=== PATIENT | male | born 1990 | race Two or more races ===

== ENCOUNTER 2018-03-16 23:08 | Emergency (ER) | payer OTHER ==
--- NOTE | 2018-03-16 23:27 | EDM.PDOC ---
ED HPI GENERAL MEDICAL PROBLEM - General Chief Complaint: Abdominal Pain Stated Complaint: abdominal pain, bloody stools Time Seen by Provider: 03/16/18 23:15 Source of Information: Reports: Patient History Limitations: Reports: No Limitations - History of Present Illness INITIAL COMMENTS - FREE TEXT/NARRATIVE: Patient reports being awakened with abdominal pain that is near the umbilicus. No nausea, no vomiting. Bloody stool. Denies fever, chills, chest pain, SOB, loss of consciousness. States he fell earlier today on the ice with no pain from that. Denies any prior surgeries. Gall bladder and appendix still intact. States he sleeps about 4 hours per day. He denies other medical history. No history of hemorrhoids, ulcers, GERD. Onset: Today, Sudden Duration: Intermittent Location: Reports: Abdomen Severity: Mild Improves with: Reports: None Worsens with: Reports: None Associated Symptoms: Reports: No Other Symptoms Lower Abdomen Pain Score (Numeric/FACES): 6 - Related Data Allergies Allergy/AdvReac Type Severity Reaction Status Date / Time No Known Allergies Allergy Verified 03/16/18 23:09 Home Meds: Home Meds . [No Known Home Meds] 03/16/18 [History] Past Medical History - Past Health History Medical/Surgical History: Denies Medical/Surgical History Social & Family History - Tobacco Use Smoking Status *Q: Never Smoker ED ROS GENERAL - Review of Systems Review Of Systems: See Below Constitutional: Reports: No Symptoms HEENT: Reports: No Symptoms Respiratory: Reports: No Symptoms Cardiovascular: Reports: No Symptoms Endocrine: Reports: No Symptoms GI/Abdominal: Reports: Abdominal Pain, Bloody Stool : Reports: No Symptoms Musculoskeletal: Reports: No Symptoms Skin: Reports: No Symptoms Neurological: Reports: No Symptoms Psychiatric: Reports: No Symptoms Hematologic/Lymphatic: Reports: No Symptoms Immunologic: Reports: No Symptoms ED EXAM, GI/ABD - Physical Exam Exam: See Below Exam Limited By: No Limitations General Appearance: Alert, WD/WN, No Apparent Distress Eyes: Bilateral: Normal Appearance, EOMI Ears: Normal TMs Nose: Normal Inspection, Normal Mucosa, No Blood Throat/Mouth: Normal Inspection, Normal Lips, Normal Teeth, Normal Gums, Normal Oropharynx, Normal Voice, No Airway Compromise Head: Atraumatic, Normocephalic Neck: Normal Inspection, Supple, Non-Tender, Full Range of Motion Respiratory/Chest: No Respiratory Distress, Lungs Clear, Normal Breath Sounds, No Accessory Muscle Use, Chest Non-Tender Cardiovascular: Normal Peripheral Pulses, Regular Rate, Rhythm, No Edema, No Gallop, No JVD, No Murmur, No Rub GI/Abdominal Exam: Normal Bowel Sounds, Soft, Non-Tender Rectal (Males) Exam: Normal Exam, Normal Rectal Tone, Bloody Stool. No: Hemorrhoids Back Exam: Normal Inspection, Full Range of Motion, NT Extremities: Normal Inspection, Normal Range of Motion, Non-Tender, Normal Capillary Refill, No Pedal Edema Neurological: Alert, Oriented, CN II-XII Intact, Normal Cognition, Normal Gait, Normal Reflexes, No Motor/Sensory Deficits Psychiatric: Normal Affect, Normal Mood Skin Exam: Warm, Dry, Intact, Normal Color, No Rash Lymphatic: No Adenopathy Course - Vital Signs Last Recorded V/S: Last Vital Signs Temp 36.9 C 03/16/18 23:10 Pulse 75 03/16/18 23:10 Resp 16 03/16/18 23:10 BP 121/73 03/16/18 23:10 Pulse Ox 95 03/16/18 23:10 - Orders/Labs/Meds Orders: Active Orders 24 hr Category Date Time Status Abdomen Pelvis w Cont [CT] Stat Exams 03/16/18 23:28 Ordered AMYLASE [CHEM] Stat Lab 03/16/18 23:28 Ordered CBC WITH AUTO DIFF [HEME] Stat Lab 03/16/18 23:28 Ordered COMPREHENSIVE METABOLIC PN,CMP [CHEM] Stat Lab 03/16/18 23:28 Ordered Lactated Ringers [Ringers, Lactated] 1,000 ml Med 03/16/18 23:30 Active IV ASDIRECTED Pantoprazole [ProTONIX IV] Med 03/16/18 23:28 Once 40 mg IVPUSH ONETIME ONE Sodium Chloride 0.9% [Saline Flush] Med 03/16/18 23:28 Active 10 ml FLUSH ASDIRECTED PRN Saline Lock Insert [OM.PC] Routine Oth 03/16/18 23:28 Ordered Medication Orders Lactated Ringer's (Ringers, Lactated) 1,000 mls @ 150 mls/hr IV ASDIRECTED FRANCINE Pantoprazole Sodium (Protonix Iv) 40 mg IVPUSH ONETIME ONE Stop: 03/16/18 23:29 Sodium Chloride (Saline Flush) 10 ml FLUSH ASDIRECTED PRN PRN Reason: Keep Vein Open Meds: Medications Generic Name Dose Route Start Last Admin Trade Name Conor PRN Reason Stop Dose Admin Lactated Ringer's 1,000 mls @ 150 mls/hr 03/16/18 23:30 Ringers, Lactated IV ASDIRECTED FRANCINE Pantoprazole Sodium 40 mg 03/16/18 23:28 Protonix Iv IVPUSH 03/16/18 23:29 ONETIME ONE Sodium Chloride 10 ml 03/16/18 23:28 Saline Flush FLUSH ASDIRECTED PRN Keep Vein Open - Radiology Interpretation Free Text/Narrative:: CT shows uncomplicated diverticulosis, negative labs for inflammation. normal CRP, white count, afebrile. Departure - Departure Time of Disposition: : Disposition: Home, Self-Care 01 Condition: Good Clinical Impression: Diverticulosis - Discharge Information *PRESCRIPTION DRUG MONITORING PROGRAM REVIEWED*: No *COPY OF PRESCRIPTION DRUG MONITORING REPORT IN PATIENT LINK: No Instructions: Diverticulosis Forms: ED Department Discharge Additional Instructions: Plan 1. Establish primary care at the [facility] in [place]. 2. You should have them refer you to gastroenterology to determine where the bleeding is coming from. 3. Your creatinine level is high. This is likely a result of taking creatinine performance supplements. You should discontinue this to help protect your kidneys. 4. If you have any large amounts of blood in your stools, have dizziness, shortness of breath, come into the emergency room immediately. 5. Please call if you have any additional questions or concerns. - Problem List & Annotations (1) Diverticulosis SNOMED Code(s): 24871613 Code(s): K57.90 - DVRTCLOS OF INTEST, PART UNSP, W/O PERF OR ABSCESS W/O BLEED Status: Acute Current Visit: Yes Qualifiers: Diverticulosis site: diverticulosis of large intestine Diverticulosis bleeding: diverticulosis with bleeding Qualified Code(s): K57.31 - Diverticulosis of large intestine without perforation or abscess with bleeding - Problem List Review Problem List Initiated/Reviewed/Updated: Yes - My Orders Last 24 Hours: My Active Orders 03/16/18 23:28 Abdomen Pelvis w Cont [CT] Stat AMYLASE [CHEM] Stat CBC WITH AUTO DIFF [HEME] Stat COMPREHENSIVE METABOLIC PN,CMP [CHEM] Stat Pantoprazole [ProTONIX IV] 40 mg IVPUSH ONETIME ONE Sodium Chloride 0.9% [Saline Flush] 10 ml FLUSH ASDIRECTED PRN Saline Lock Insert [OM.PC] Routine 03/16/18 23:30 Lactated Ringers [Ringers, Lactated] 1,000 ml IV ASDIRECTED - Assessment/Plan Last 24 Hours: My Active Orders 03/16/18 23:28 Abdomen Pelvis w Cont [CT] Stat AMYLASE [CHEM] Stat CBC WITH AUTO DIFF [HEME] Stat COMPREHENSIVE METABOLIC PN,CMP [CHEM] Stat Pantoprazole [ProTONIX IV] 40 mg IVPUSH ONETIME ONE Sodium Chloride 0.9% [Saline Flush] 10 ml FLUSH ASDIRECTED PRN Saline Lock Insert [OM.PC] Routine 03/16/18 23:30 Lactated Ringers [Ringers, Lactated] 1,000 ml IV ASDIRECTED Assessment:: diverticulosis Plan: Plan 1. Establish primary care at the [facility] in [place]. 2. You should have them refer you to gastroenterology to determine where the bleeding is coming from. 3. Your creatinine level is high. This is likely a result of taking creatinine performance supplements. You should discontinue this to help protect your kidneys. 4. If you have any large amounts of blood in your stools, have dizziness, shortness of breath, come into the emergency room immediately. 5. Please call if you have any additional questions or concerns.
[2018-03-16] MEDS ORDERED: Sodium Chloride 0.9% 10 ML Syringe FLUSH PRN (23:28)
[2018-03-16] MEDS ORDERED: Pantoprazole 40 MG Vial IVPUSH ONE (23:28)
[2018-03-16] MEDS ORDERED: Lactated Ringers 1,000 ML IV SCH (23:30)
[2018-03-16] MEDS ORDERED: Iopamidol 612 MG/ML 100 ML Bottle IVPUSH ONE (23:51)
[2018-03-17 00:10] LABS: CHLORIDE,CL 102 mmol/L (98-107); SODIUM,NA 140 mmol/L (136-145)
[2018-03-17 00:11] LABS: ANION GAP 12.3 mmol/L (10-20)
[2018-03-17] MEDS ORDERED: Potassium Chloride 20 MEQ Tab.ER PO ONE (00:33)
[2018-03-17] MEDS ORDERED: Magnesium Chloride 64 MG Tab.ER PO ONE (00:48)
--- NOTE | 2018-03-17 09:17 | CT ---
[id number] CT/CT Abdomen Pelvis W IV EXAM: ABDOMEN AND PELVIS CT WITH CONTRAST INDICATION: Bloody stools and abdominal pain. COMPARISON: None. DISCUSSION: Scattered colonic diverticula are questioned without evidence of colitis or diverticulitis. Tiny fat-containing umbilical hernia. Minimal L5-S1 spondylolisthesis relating to a left-sided pars defect. The osseous structures are otherwise unremarkable. The lung bases, liver, gallbladder, spleen, pancreas, adrenal glands, kidneys, small bowel and appendix are normal in appearance. No adenopathy, free air free fluid. IMPRESSION: 1. The scattered colonic diverticula are suggested. No CT evidence of diverticulitis or colitis. Fabián Story MD 03/17/18 0916 Thank you for allowing us to participate in the care of your patient.
== END 2018-03-17 01:40 | disposition home or self-care (01) ==
LOC: VM.ED 23:08
DX: K57.30 Diverticulosis of large intestine without perforation or abscess without bleeding (principal)
CPT/HCPCS: 36415; 74177; 80053; 82150; 83735; 85025; 86140; 96361; 96374; 99285; A9270-GY; C9113; J7120; Q9967